=== PATIENT | male | born 1935 | race Caucasian/White ===

== ENCOUNTER → 2016-07-28 | Day surgery (SDC) | payer MEDICARE, BC ==
[~2016-07-28] MED LIST: ASPI81TA82 PO; IMIP50TA30 PO; LACTATED RINGER'S 1,000 ML BAG IV ONE; LANTINJ SQ; LEVE250 PO; LEVO75TA3 PO; NORC10TA2 PO; PRIL40CA PO; PRIN5TAB PO; PROPOFOL 500 MG/50 ML BTL IV ONE; SIMV80TA PO; SUMA50 PO; VICT18IN SQ; VITA-13 PO
--- NOTE | 2016-07-28 09:42 | GIPROC ---
[facility] [address] [facility], [address] COLONOSCOPY PROCEDURE REPORT EXAM DATE: 07/28/2016 PATIENT NAME: Tae Bonner MR #: [id number] BIRTHDATE: 1935 ENDOSCOPIST: Bahman Ding MD ORDER #: [id number] GAME ARTIST: STATUS: outpatient INDICATIONS: The patient is a 80 yr old male here for a colonoscopy due to high risk patient with personal history of colonic polyps PROCEDURE PERFORMED: Colonoscopy with polypectomy MEDICATIONS: None and Per Anesthesia. PREP QUALITY: excellent ESTIMATED BLOOD LOSS: None CONSENT: The patient understands the risks and benefits of the procedure and understands that these risks include, but are not limited to: sedation, allergic reaction, infection, perforation and/or bleeding. Alternative means of evaluation and treatment include, among others: physical exam, x-rays, and/or surgical intervention. The patient elects to proceed with this endoscopic procedure. medical equipment was checked for proper function. Hand hygiene and appropriate measures for infection prevention was taken. After the risks, benefits and alternatives of the procedure were thoroughly explained, Informed consent was verified, confirmed and timeout was successfully executed by the treatment team. A digital exam revealed no abnormalities of the rectum The EC-[id number] ([id number]) endoscope was introduced through the anus and advanced to the cecum, which was identified by both the appendix and ileocecal valve. The instrument was then slowly withdrawn as the colon was fully examined. COLON FINDINGS: A medium sized smooth sessile polyp was found in the ascending colon. A polypectomy was performed with a cold snare. The resection was complete and the polyp tissue was completely retrieved. The colon mucosa was otherwise normal. Retroflexed views revealed internal hemorrhoids and Retroflexed views revealed small internal hemorrhoids The scope was then completely withdrawn from the patient and the procedure terminated. PROCEDURE WITHDRAWAL TIME:7.4minutes ADVERSE EVENTS: There were no complications. IMPRESSIONS: 1. A medium sized sessile polyp was found in the ascending colon; polypectomy was performed with a cold snare 2. The colon mucosa was otherwise normal 3. Retroflexed views revealed internal hemorrhoids 4. Retroflexed views revealed small internal hemorrhoids 5. Revealed no abnormalities of the rectum RECOMMENDATIONS: 1. Await biopsy results. Biopsy results will not be ready for 7-10 days. If you don't hear from us in two weeks, call our office for results. 2. Yearly hemoccult 3. High fiber diet 4. Follow-up: GI Clinic PRN RECALL: Return 5 years Colonoscopy Bahman Ding MD eSigned: Bahman Ding MD 07/28/2016 9:42 AM cc: Silvino Rai M.D and Avelina Baca [facility]
== END | disposition home or self-care (01) ==
LOC: ESDC 07:34
PROVIDERS: ATTEND Internal Medicine Gastroenterology
DX: Z12.11 Encounter for screening for malignant neoplasm of colon (principal); Z86.010 Personal history of colon polyps; D12.2 Benign neoplasm of ascending colon; K64.8 Other hemorrhoids; R13.10 Dysphagia, unspecified; K22.2 Esophageal obstruction; K44.9 Diaphragmatic hernia without obstruction or gangrene; Q27.33 Arteriovenous malformation of digestive system vessel; E11.9 Type 2 diabetes mellitus without complications; Z79.4 Long term (current) use of insulin
CPT/HCPCS: 00740; 00810; 43239; 43248; 43255; 45385; 82948; 88305; J3010; J7120

== ENCOUNTER → 2017-03-23 | Day surgery (SDC) | payer MEDICARE, BC ==
[~2017-03-23] MED LIST changes: -LACTATED RINGER'S 1,000 ML BAG IV ONE; +LEVE250T5; +PROPOFOL 200 MG/20 ML AMP IV ONE; -PROPOFOL 500 MG/50 ML BTL IV ONE
--- NOTE | 2017-03-23 12:26 | GIPROC ---
[facility] [address] [facility], [address] EGD PROCEDURE REPORT EXAM DATE: 03/23/2017 PATIENT NAME: Tae Bonner MR #: [id number] BIRTHDATE: 1935 ATTENDING: Aspen Olguin MD ORDER #: [id number] METAPHYSICIAN: Bob Mon RN STATUS: outpatient INDICATIONS: The patient is a 81 yr old male here for an EGD due to dysphagia PROCEDURE PERFORMED: EGD w/ biopsy EGD w/ dilation of esophagus via guidewire MEDICATIONS: None and Per Anesthesia. TOPICAL ANESTHETIC: CONSENT: The patient understands the risks and benefits of the procedure and understands that these risks include, but are not limited to: sedation, allergic reaction, infection, perforation and/or bleeding. Alternative means of evaluation and treatment include, among others: physical exam, x-rays, and/or surgical intervention. The patient elects to proceed with this endoscopic procedure. medical equipment was checked for proper function. Hand hygiene and appropriate measures for infection prevention was taken. After the risks, benefits and alternatives of the procedure were thoroughly explained, Informed consent was verified, confirmed and timeout was successfully executed by the treatment team. The patient was anesthetized with topical anesthesia and the EG-[id number] ([id number]) endoscope was introduced through the mouth and advanced to the second portion of the duodenum. Retroflexed views revealed a hiatal hernia The gastroscope was then slowly withdrawn and removed. ESOPHAGUS: There was LA Class A esophagitis noted. The stricture was dilated using a 17mm (51Fr) savary dilator over guidewire. STOMACH: There was erythematous moderate gastritis in the gastric antrum. A biopsy was performed using cold forceps. Sample sent for histology. DUODENUM: The duodenal mucosa appeared normal in the bulb and second portion of the duodenum. ADVERSE EVENTS: There were no complications. IMPRESSIONS: 1. There was LA Class A esophagitis noted; The stricture was dilated using a 17mm (51Fr) savary dilator over guidewire 2. There was erythematous gastritis in the gastric antrum; biopsy was performed 3. Normal duodenal mucosa in the bulb and second portion of the duodenum 4. Retroflexed views revealed a hiatal hernia RECOMMENDATIONS: 1. Await biopsy results. Biopsy results will not be ready for 7-10 days. If you don't hear from us in two weeks, call our office for biopsy results. 2. Anti-reflux regimen 3. Continue PPI PATIENT CONDITION: stable DISPOSITION: Home REPEAT EXAM: Return 1 year EGD with dilatation Aspen Olguin MD eSigned: Aspen Olguin MD 03/23/2017 12:25 PM cc: Silvino Baca [facility] PATIENT NAME: Tae Bonner MR#: [id number]
== END | disposition home or self-care (01) ==
LOC: ESDC 09:25
PROVIDERS: ATTEND Internal Medicine Gastroenterology
DX: R13.10 Dysphagia, unspecified (principal); K44.9 Diaphragmatic hernia without obstruction or gangrene; K29.70 Gastritis, unspecified, without bleeding; K20.9 Esophagitis, unspecified
CPT/HCPCS: 82948; 88305; 88312